=== PATIENT | male | born 1980 | race Caucasian/White ===

== ENCOUNTER 2025-01-28 06:02 | Emergency (ER) | payer OTHER ==
[~2025-01-28] VITALS: Ht 180.3 cm; Wt 190.0 kg
[2025-01-28 06:27] LABS: BASOPHILS 0.8 % (0.2-1.2); EOSINOPHILS 2.4 % (0.8-7.0); LYMPHOCYTES 28.8 % (21.8-53.1); MCH 30.7 PG (25.7-32.2); MCHC 34.7 g/dL (32.3-36.5); MCV 88.5 fL (79.0-92.2); MONOCYTES 7.7 % (5.3-12.2); NEUTROPHILS 59.5 % (34.0-67.9); RBC 5.41 M/uL (4.63-6.08)
[2025-01-28 06:46] LABS: ALT (SGPT) 48.0 U/L (14-59); AST (SGOT) 17.0 U/L (15-37); GLOMERULAR FILTRATION RATE,EST 93.0 mL/min (>60); PROTEIN, TOTAL 7.6 g/dL (6.4-8.2); TSH, 3RD GENERATION 4.816 uIU/mL (0.358-3.740); UREA NITROGEN 17.0 mg/dL (7-18)
[2025-01-28 07:01] VITALS: BP 137/89
[2025-01-28 07:08] LABS: AMPHETAMINES, URINE NEGATIVE (NEGATIVE); BARBITURATES, URINE NEGATIVE (NEGATIVE); BENZODIAZEPINE, URINE NEGATIVE (NEGATIVE); CANNABINOID, URINE POSITIVE (NEGATIVE); COCAINE, URINE NEGATIVE (NEGATIVE); ECSTASY, URINE POSITIVE (NEGATIVE); FENTANYL, URINE NEGATIVE (NEGATIVE); METHADONE, URINE NEGATIVE (NEGATIVE); OPIATES, URINE NEGATIVE (NEGATIVE); OXYCODONE, URINE NEGATIVE (NEGATIVE); PHENCYCLIDINE, URINE NEGATIVE (NEGATIVE)
--- NOTE | 2025-01-29 21:56 | EKG ---
[facility] [address] [facility] [place] [address] Signed Sinus tachycardia Otherwise normal ECG No previous ECGs available Confirmed by Rosy Christie MD () on 01/29/2025 9:56:08 PM Electronically Signed By: ROSY CHRISTIE MD 01/29/25 [id number] PATIENT NAME: GRACE MORRISSEY Electrocardiogram DATE OF : 78 PHYSICIAN: ROSY CHRISTIE MD REPORT #: [id number] REPORT IS CONFIDENTIAL AND NOT TO BE RELEASED WITHOUT AUTHORIZATION
== END 2025-01-28 07:02 | disposition home or self-care (01) ==
LOC: ED 06:02
PROVIDERS: Internal Medicine
DX: R00.2 Palpitations (principal)
CPT/HCPCS: 36415; 71045; 80053; 80307; 83735; 83880; 84443; 84484; 85025; 85379; 93005; 93010; 99285-25